=== PATIENT | female | born 1945 | race Caucasian/White ===

== ENCOUNTER 2021-01-06 16:11 | Outpatient (REF) | payer MEDICARE, SELFPAY ==
--- NOTE | ~2021-01-06 | XR_ITS ---
EXAMINATION: FACIAL AND NASAL BONE X-RAY CLINICAL INFORMATION: Fall. Contusion. COMPARISON: None TECHNIQUE: 2 views of the nasal bones and 4 views of the facial bones FINDINGS: Nasal bones: No nasal bone fracture or dislocation is seen. The nasal spine of maxilla is intact. Facial bones: Bone alignment is normal. No fracture or dislocation is seen. There is increased soft tissue seen in the right maxillary sinus. The paranasal sinuses are otherwise clear. Bony structures are unremarkable. XR/XR facial bones min 3V IMPRESSION: No fracture or dislocation seen. Increased soft tissue in the right maxillary sinus. Sinus disease and changes related to trauma should be considered.
--- NOTE | ~2021-01-06 | XR_ITS ---
EXAMINATION: FACIAL AND NASAL BONE X-RAY CLINICAL INFORMATION: Fall. Contusion. COMPARISON: None TECHNIQUE: 2 views of the nasal bones and 4 views of the facial bones FINDINGS: Nasal bones: No nasal bone fracture or dislocation is seen. The nasal spine of maxilla is intact. Facial bones: Bone alignment is normal. No fracture or dislocation is seen. There is increased soft tissue seen in the right maxillary sinus. The paranasal sinuses are otherwise clear. Bony structures are unremarkable. XR/XR nasal bones min 3V IMPRESSION: No fracture or dislocation seen. Increased soft tissue in the right maxillary sinus. Sinus disease and changes related to trauma should be considered.
[2021-01-06 17:22] LABS: MANUAL DIFF FLAG NO
[2021-01-06 17:25] LABS: Basophils Percent Auto 0.4 % (0-2); Eosinophils Absolute Auto 0.5 X10*3/uL (0.0-0.4); Eosinophils Percent Auto 9.1 % (0-4); Hematocrit 43.2 % (37-47); Hemoglobin 14.2 g/dl (12.0-16.0); Imm Gran Abs Auto 0.01 X10*3/uL (0.00-0.03); Imm Gran Pct Auto 0.2 % (0.0-0.4); Lymphocytes Absolute Auto 1.3 X10*3/uL (1.2-4.9); Lymphocytes Percent Auto 25.3 % (20-40); Mean Corpuscular HGB Conc 32.9 g/dl (31.0-35.0); Mean Corpuscular Hemoglobin 30.2 pg (27.0-33.0); Mean Corpuscular Volume 91.9 fL (80-98); Mean Platelet Volume 11.3 fL (9.4-12.3); Monocytes Absolute Auto 0.8 X10*3/uL (0.1-1.2); Monocytes Percent Auto 14.9 % (2-11); Neutrophils Absolute Auto 2.6 X10*3/uL (2.0-8.3); Neutrophils Percent Auto 50.1 % (45-73); Platelet Count 160 X10*3/uL (160-400); Red Cell Distribution Width 13.2 % (11.0-16.0); White Blood Count 5.2 X10*3/uL (4.8-10.8)
[2021-01-06 17:35] LABS: Prothrombin Time 11.6 SEC (10.8-13.0)
[2021-01-06 17:38] LABS: Partial Thromboplastin Time 26.9 SEC (24.1-38.0)
[2021-01-06 17:43] LABS: Alanine Aminotransferase 20 U/L (0-31); Albumin Level 4.3 g/dL (3.5-5.0); Alkaline Phosphatase 78 U/L (39-117); Anion Gap 15 (12-20); Aspartate Amino Transferase 25 U/L (5-31); Bilirubin Total 0.4 mg/dL (0.0-1.0); Blood Urea Nitrogen 26 mg/dL (9-16); C Reactive Protein 3.64 mg/dL (< or = 0.50); Calcium 9.5 mg/dL (8.4-10.2); Carbon Dioxide 26 mmol/L (22-29); Chloride 104 mmol/L (96-108); Estimated Glomerular Filt Rate > 60; Glucose Random 86 mg/dL (60-115); Sodium 141 mmol/L (135-145); Total Protein 7.1 g/dL (6.5-8.0)
[2021-01-06 18:05] LABS: Free T4 (Free Thyroxine) 0.88 ng/dL (0.71-1.85); Thyroid Stimulating Hormone 4.77 uIU/mL (0.32-4.0)
== END 2021-01-06 16:12 | disposition home or self-care (01) ==
LOC: HO.LAB 16:11
PROVIDERS: PCP Internal Medicine; Visit Provider Internal Medicine
DX: R63.5 Abnormal weight gain (principal); I10 Essential (primary) hypertension; S00.83XA Contusion of other part of head, initial encounter; W19.XXXA Unspecified fall, initial encounter; Y93.9 Activity, unspecified; Y92.9 Unspecified place or not applicable; Y99.9 Unspecified external cause status
CPT/HCPCS: 36415; 70150; 70160; 80053; 84439; 84443; 85025; 85610; 85730; 86140

== ENCOUNTER → 2021-09-22 13:53 | Outpatient (BNVA) | payer MEDICARE, SELFPAY | PROVIDERS: PCP Internal Medicine; Referring Provider Internal Medicine; Visit Provider Internal Medicine Cardiovascular Disease | DX: I10 Essential (primary) hypertension (principal) | CPT/HCPCS: 93005; 99202 ==

== ENCOUNTER → 2021-11-09 13:54 | Outpatient (REF) | payer MEDICARE, SELFPAY ==
--- NOTE | 2021-11-09 13:57 | CA_ITS ---
Transthoracic Echocardiogram Patient (Last, First, Middle): Mayda Cohen J Gender: Female Date of : 1945 Age: 76 Procedure Date: 11/09/2021 Procedure Type: Transthoracic Echocardiogram Location: OP Height: 162.56 cm Weight: 58.97 kg BSA: 1.63 m2 Heart Rate: bpm BP: 168 / 100 mmHg Increment Manager: STEVEN Referring MD: Abimael Bhakta MD Symptoms: I10 - Essential (primary) hypertension Study Quality: Fair Conclusions: - Normal left ventricular size and systolic function. There is moderately increased left ventricular wall thickness. The visually estimated ejection fraction is between 65-70%. - E/E prime ratio is between 8 and 15 consistent with indeterminate filling pressures. - Normal right ventricular cavity size and systolic function. - The left atrium is normal in size. The right atrium is mildly dilated. Findings Left Ventricle Normal left ventricular size and systolic function. There is moderately increased left ventricular wall thickness. The visually estimated ejection fraction is between 65-70%. There is no evidence of regional wall motion abnormalities. Abnormal diastolic function is noted. Spectral Doppler is indicative of an impaired relaxation filling pattern. E/E prime ratio is between 8 and 15 consistent with indeterminate filling pressures. Right Ventricle Normal right ventricular cavity size and systolic function. Atria The left atrium is normal in size. The right atrium is mildly dilated. Aortic Valve Normal aortic valve structure and function. There is no aortic valve stenosis. There is no aortic valve regurgitation. Mitral Valve There is mild mitral annular calcification. There is no mitral valve regurgitation. There is no mitral valve stenosis. Pulmonic Valve The pulmonic valve is likely normal. Tricuspid Valve Normal tricuspid valve structure and function. There is no tricuspid valve regurgitation. Normal right atrial pressure. There is no evidence of pulmonary hypertension. Great Vessels All visible segments of the aorta are normal in size. The visualized portions of the pulmonary artery and branches are normal. Venous The inferior vena cava is normal in size and collapses greater than 50% with inspiration. Pericardium/Pleural There is no evidence of pericardial effusion. Prior Study Comparison No prior study available for comparison. Measurements 2D Linear Measurements IVSd: 1.38 0.6-0.9/0.6-1.0 cm LVIDd: 3.35 3.9-5.3/4.2-5.9 cm LVIDd Index: 2.06 2.4-3.2/2.2-3.1 cm/m2 LVIDs: 1.95 2.0-3.6 cm LVPWd: 1.27 0.7-1.1 cm Ao Root: 3.00 2.1-3.5 cm LA Diam: 2.90 2.7-3.8/3.0-4.0 cm LAIDs Index: 1.78 1.5-2.3 cm/m2 LV Mass: 185.54 67-162/88-224 g LV Mass Index: 113.83 43-95/49-115 g/m2 LVOT Diam: 2.00 3.0+(-)1.3 cm 2D Systolic Function EF 4C: 72.60 >55% EF 2C: 63.70 >55% EF BiP: 69.80 >55% Mitral Valve MV Pk E: 0.78 MV PK A: 1.18 MV Decel Time: 298.00 E/A: 0.70 E'Lateral: 6.85 E'Medial: 4.79 E/E' Med: 16.30 E/E' Lat: 11.40 PHT: 87.00 MVA PHT: 2.53 Decel [place]: 2.63 Aortic Valve AoV Pk Toro: 1.47 AoV Mn Toro: 0.91 AoV VTI: 0.30 AoV Pk Grad: 9.00 Aov Mn Grad: 4.00 ANTONIO Cont.VTI: 2.63 LVOT LVOT Pk Toro: 1.10 LVOT Mn Toro: 0.77 LVOT VTI: 0.25 LVOT Pk Grad: 5.00 LVOT Mn Grad: 3.00 LVOT Diam: 2.00 LVOT Area: 3.14 Diastolic Function MV Pk E: 0.78 MV Pk A: 1.18 E/A: 0.70 E'Medial: 4.79 E/E' Med: 16.30 E' Laterial: 6.85 E/E' Lat: 11.40 Right Ventricle TAPSE (mm): 26.50 TVS' Toro: 12.80 Tricuspid Valve TR Pk Toro: 2.55 TR Pk Grad: 26.00 RA Press: 3.00 RVSP: 29.00 Great Vessels Aorta Ao Root-2D: 3.00 2.0-3.7 cm Ao Asc: 3.00 2.1-3.4 cm Ao Arch: 2.60 Updated in Other Vendor System with Status of Final Abimael Bhakta MD electronically signed on 11/10/2021 12:41:57 PM with status of Final
== END ==
LOC: HO.CARD 13:54
PROVIDERS: PCP Internal Medicine; Visit Provider Internal Medicine Cardiovascular Disease
DX: I10 Essential (primary) hypertension (principal)
CPT/HCPCS: 93306

== ENCOUNTER → 2021-12-21 13:13 | Outpatient (BNVA) | payer MEDICARE, SELFPAY | PROVIDERS: PCP Internal Medicine; Referring Provider Internal Medicine; Visit Provider Internal Medicine Cardiovascular Disease | DX: I10 Essential (primary) hypertension (principal) | CPT/HCPCS: 99212 ==

== ENCOUNTER → 2022-06-26 13:10 | Outpatient (BNVA) | payer MEDICARE, SELFPAY | PROVIDERS: PCP Internal Medicine; Referring Provider Internal Medicine; Visit Provider Internal Medicine Cardiovascular Disease | DX: I10 Essential (primary) hypertension (principal); R06.09 Other forms of dyspnea | CPT/HCPCS: 93005; 99212 ==

== ENCOUNTER → 2022-08-01 08:58 | Outpatient (REF) | payer MEDICARE, SELFPAY ==
--- NOTE | ~2022-08-01 | NM_ITS ---
Myocardial perfusion study Indication: Exercise Myocardial perfusion study Indication: Shortness of breath evaluate for myocardial ischemia Technique: The patient was brought in for an exercise perfusion study on 08/01/2022. Patient performed exercise as per Sky protocol and was injected 24 mCi of sestamibi was given intravenously one target HR was achieved. Images were obtained using the SPECT gamma camera interlaced with the gating device. Images were obtained in supine position. Resting perfusion study was performed on 08/01/2022. Patient was administered 8 mCi of sestamibi intravenously at rest. Images were then obtained in supine position. Images obtained with and without CT attenuation. Total DLP 72 mGy-cm. Images were processed with the software and compared side to side in short axis, horizontal long axis and vertical long axis views. Findings: The stress perfusion study showed non attenuated images show mildly reduced uptake in the basal and mid lateral wall of the LV myocardium. Remainder of the LV myocardium is normally perfused. Attenuation corrected images show normalized uptake in the lateral wall of the LV myocardium.. The gated study shows normal LV systolic function with calculated LVEF of 66%. LV cavity is normal in in size. The gated study shows normal systolic wall thickening and contraction of all segments. There is no transient ischemic dilation. Resting study shows non attenuated images show normal uptake of radiotracer in all segments of LV myocardium. Attenuation corrected images show no change in perfusion pattern. Gating at rest reveals normal systolic wall motion with ejection fraction at greater than 60%. The findings are consistent with non attenuated images show moderate intensity reversible defect of the mid and basal lateral wall suggestive of ischemia.. NM/NM komal perf SPECT rest & str Impression: 1. Possible ischemia of the mid and basal lateral wall of mild intensity 2. Gated LVEF is 66% 3. Transient ischemic dilatation not present Stress EKG is suggestive of ischemia
--- NOTE | 2022-08-01 09:04 | CA_ITS ---
Acquisition Time: 2022-08-01 11:13:14 Total Exercise Time: 00:05:45 Test Indications: SOB Medications: SEE CHART Protocol: MARTHA Max HR: 123 BPM 86% of Pred: 143 BPM Max BP: 178/084 mmHG Max Work Load: 7.0 METS Exercise stress test with exercise 5 min 45 sec of Martha protocol, achieving 86% MPHR, with fatigue, without anginal symptoms, with isolated PACs, with normotensive response to exercise, with EKG changes meeting criteria for ischemia: upsloping ST depression inferiorly, V3-V6 which then becomes horizontal then downsloping ST/T wave inversions in those leads with slow gradual improvement in recovery. Nuclear images pending. Test reviewed with Dr Bhakta. Referred By: Abimael Bhakta Overread By: KIEL FRIED
== END ==
LOC: HO.CARD 08:58
PROVIDERS: PCP Internal Medicine; Visit Provider Internal Medicine Cardiovascular Disease
DX: R06.09 Other forms of dyspnea (principal)
CPT/HCPCS: 78452; 93017; A9500

== ENCOUNTER 2022-10-07 09:08 | Outpatient (REF) | payer MEDICARE, SELFPAY ==
[2022-10-07 09:56] LABS: Hematocrit 40.7 % (37.0-47.0); Hemoglobin 13.6 g/dl (12.0-16.0); Mean Corpuscular HGB Conc 33.4 g/dl (31.0-35.0); Mean Corpuscular Hemoglobin 31.3 pg (27.0-33.0); Mean Corpuscular Volume 93.8 fL (80.0-98.0); Mean Platelet Volume 11.5 fL (9.4-12.3); Platelet Count 200 X10*3/uL (160-400); Red Blood Count 4.34 X10*6/uL (4.20-5.50); Red Cell Distribution Width 13.2 % (11.0-16.0)
[2022-10-07 10:03] LABS: INTERNATIONAL NORM RATIO 0.9 (0.9-1.1); Prothrombin Time 10.4 SEC (10.0-13.1)
[2022-10-07 10:17] LABS: Anion Gap 7 (12-20); Blood Urea Nitrogen 24 mg/dL (9-16); Calcium 9.4 mg/dL (8.4-10.2); Carbon Dioxide 30 mmol/L (22-29); Chloride 107 mmol/L (96-108); Estimated Glomerular Filt Rate > 60; Glucose Random 99 mg/dL (60-115); Potassium 4.2 mmol/L (3.3-5.1); Sodium 140 mmol/L (135-145)
== END 2022-10-07 09:09 | disposition home or self-care (01) ==
LOC: HO.LAB 09:08
PROVIDERS: PCP Internal Medicine; Visit Provider Internal Medicine Cardiovascular Disease
DX: R06.09 Other forms of dyspnea (principal)
CPT/HCPCS: 36415; 80048; 85027; 85610

== ENCOUNTER 2023-03-16 11:25 | Outpatient (REF) | payer MEDICARE, SELFPAY ==
--- NOTE | ~2023-03-16 | XR_ITS ---
EXAMINATION: XR HIP, RIGHT CLINICAL INFORMATION: Pain in unspecified hip COMPARISON: CT scan abdomen and pelvis 12/04/2019 TECHNIQUE: Two views of the right hip. FINDINGS: The bones are diffusely demineralized. No fracture. Alignment is anatomic. There is minimal narrowing of the cartilage space of the right hip with marginal osteophyte formation along the superior dorsolateral aspect of the acetabulum. Small osteophyte along the inferior aspect of the femoral head. Small sclerotic density seen in the intertrochanteric region of the femoral shaft. Soft tissues are unremarkable. There is mild degenerative change of the pubic symphysis. Degenerative disc disease is seen in the lower lumbar spine. XR/XR hip RT min 2V IMPRESSION: Mild osteoarthritis of the right hip.
--- NOTE | ~2023-03-16 | XR_ITS ---
EXAMINATION: XR HIP, LEFT CLINICAL INFORMATION: Pain in unspecified hip COMPARISON: None available. TECHNIQUE: Two views of the left hip. FINDINGS: The bones are diffusely demineralized. No fracture. Alignment is anatomic. There is minimal narrowing of the cartilage space of the left hip. There is mild degenerative change of the pubic symphysis. Degenerative disc disease is seen in the lower lumbar spine. XR/XR hip LT w PEL1V IMPRESSION: 1. Minimal osteoarthritis of the left hip. 2. Degenerative disc disease in the lower lumbar spine.
--- NOTE | ~2023-03-16 | XR_ITS ---
EXAMINATION: XR STANDING KNEES, BILATERAL KNEES XR KNEE, RIGHT CLINICAL INFORMATION: Pain. COMPARISON: None available. TECHNIQUE: AP standing view of bilateral knees. Lateral and sunrise views right knee. FINDINGS: Left Knee: Mild medial joint space narrowing with tiny medial marginal osteophytes. Dense linear soft tissue calcification medial to the proximal shaft of the fibula. Right Knee: Mild medial joint space narrowing. Tiny tricompartmental osteophytes. Trace joint effusion. XR/XR knee standing BI IMPRESSION: Mild degenerative changes.
--- NOTE | ~2023-03-16 | XR_ITS ---
EXAMINATION: XR STANDING KNEES, BILATERAL KNEES XR KNEE, RIGHT CLINICAL INFORMATION: Pain. COMPARISON: None available. TECHNIQUE: AP standing view of bilateral knees. Lateral and sunrise views right knee. FINDINGS: Left Knee: Mild medial joint space narrowing with tiny medial marginal osteophytes. Dense linear soft tissue calcification medial to the proximal shaft of the fibula. Right Knee: Mild medial joint space narrowing. Tiny tricompartmental osteophytes. Trace joint effusion. XR/XR knee RT 2V IMPRESSION: Mild degenerative changes.
== END 2023-03-16 11:26 | disposition home or self-care (01) ==
LOC: HO.HOSX 11:25
PROVIDERS: Visit Provider Physician Assistant
DX: M17.11 Unilateral primary osteoarthritis, right knee (principal); S80.01XA Contusion of right knee, initial encounter; M25.551 Pain in right hip; M25.552 Pain in left hip; M54.50 Low back pain, unspecified
CPT/HCPCS: 20610; 73502; 73560; 73565; 99202; J1040

== ENCOUNTER 2023-06-19 11:26 | Outpatient (AMB) | payer MEDICARE, SELFPAY ==
--- NOTE | 2023-06-19 11:32 | A.OFFVIS_ITS ---
Intake Intake Visit Reasons: ov- Right knee pain Intake Note: Mayda is a 77 year old female who presents today for a evaluation for her right knee pain, last injection 03/16/23. Patient reports her last injection didn't help. She states that when she icing her knee and elevating only gives her temporary relief. Patient would like to know what can she do to relief her pain. Allergies No Known Allergies [No Known Allergies*] Allergy (Verified 06/19/23 11:36) HPI ov- Right knee pain HPI Details 77-year-old female who presents in the o [facility] today for a follow up of right knee pain. The patient has her last cortisone injection on 03/16/2023, which did not give her relief. She confirms icing and elevating the right knee, which has given some relief. [facility] Surgical History Hx of tonsillectomy Family History Mother S/P triple vessel bypass Father Myocardial infarction Sister Heart disease Son HTN (hypertension) Social History Alcohol intake: current Alcohol intake frequency: a few times a week Patient Tobacco Use Status: Former Tobacco user Quit Date: 1979 Smoked: 10 +/- Substance Use Type: Marijuana Review of Systems Const All systems reviewed & are unremarkable except as noted in HPI and below Physical Exam Const General: cooperative, healthy appearing and no acute distress Resp Effort & Inspection: normal respiratory effort and able to speak in complete sentences Cardio Rate: regular rate Peripheral pulses: Peripheral pulses 2+ throughout GI Palpation (GI): Soft to palpation Skin Lesions: no lesions Rashes: no rashes Extrem Other: Right knee: Normal to inspection. No ecchymosis, erythema, or joint effusion. No tenderness to palpation to the lateral joint line. Tenderness to palpation to the medial joint line. Full knee extension and flexion. Negative Car's. Negative anterior draw. NVI. Office Procedures Joint Injection/Drain Joint Injection/Drain Primary Site: right knee Prep: site was prepped using aseptic technique, ethochloride spray was applied and injection warnings given Injected: 80 mg of, DepoMedrol, with 8 mL of (2% plain lido) and in the joint Approach Used: anterolateral Procedure: The patient tolerated the procedure well, but had some pain with the injection and there was some relief with the local anesthesia Coding 52768 - Large joint Procedure code (CPT) selection complete Results Reviewed Results Reviewed: 06/19/23 11:43 Lidocaine HCl 2 % MPF [Xylocaine 2 % MPF] 5 ml .ROUTE .STK-MED ONE methylPREDNISolone acetate [DEPO-MedroL] 80 mg .ROUTE .STK-MED ONE Assessment & Plan Assessment & Plan (1) Osteoarthritis of right knee: Code(s): M17.11 - Unilateral primary osteoarthritis, right knee Qualifiers: Osteoarthritis type: unspecified Qualified Code(s): M17.11 - Unilateral primary osteoarthritis, right knee (2) Contusion of right knee: Code(s): S80.01XA - Contusion of right knee, initial encounter Qualifiers: Encounter type: subsequent encounter Qualified Code(s): S80.01XD - Contusion of right knee, subsequent encounter Plan Ms. Cohen is a 77-year-old female who presents in the office today for a follow up of right knee pain. The patient has her last cortisone injection on 03/16/2023, which did not give her relief. She confirms icing and elevating the right knee, which has given some relief. The patient was offered a cortisone injection in the right knee with 80 mg of DepoMedrol. The patient was explained the risk, benefits, and alternatives to receiving this injection. After receiving consent for the injection, the patient had the procedure done while in office today. The patient tolerated the procedure well with no complications. I discussed the role of cortisone injections and gel injection with the patient while in the office today. She would like to move forward with the cortisone injection and in the event this does not help her she would like to move forward with Gel injections. She in currently not interesting in right knee arthroplasty. Follow up will be PRN, or sooner if needed. Patient Instructions: Scribed for Renetta Plummer PA-C by Heather Longoria medical physics teacher, on 06/19/2023 at 11:32 am, EST. Coding Level of Care Code Est Pt Level 3 (51660) Diagnoses Osteoarthritis of right knee, unspecified osteoarthritis type M17.11 Osteoarthritis type: unspecified Contusion of right knee, subsequent encounter S80.01XD Encounter type: subsequent encounter CPT Codes Coding - 18426 Large joint: 06105 - Large joint ([id number])
== END 2023-06-19 11:55 | disposition home or self-care (01) ==
PROVIDERS: PCP Internal Medicine; Visit Provider Physician Assistant
DX: M17.11 Unilateral primary osteoarthritis, right knee (principal); S80.01XD Contusion of right knee, subsequent encounter
CPT/HCPCS: 20610; 99213

== ENCOUNTER → 2023-06-19 11:26 | Outpatient (BNVA) | payer MEDICARE, SELFPAY | PROVIDERS: PCP Internal Medicine; Visit Provider Physician Assistant | DX: M17.11 Unilateral primary osteoarthritis, right knee (principal); S80.01XD Contusion of right knee, subsequent encounter | CPT/HCPCS: 20610; 99212; J1040 ==

== ENCOUNTER 2023-10-11 14:34 | Outpatient (REF) | payer MEDICARE, SELFPAY ==
--- NOTE | ~2023-10-11 | CT_ITS ---
EXAMINATION: CT MAXILLOFACIAL WITHOUT CONTRAST CLINICAL INFORMATION: Seasonal polyps. Deviated nasal septum. COMPARISON: None available. TECHNIQUE: Multidetector helical imaging was performed in the axial plane with generation of coronal and sagittal reformatted images. This CT examination was performed using dose optimization techniques as appropriate, variously including the following: *Automated exposure control. *Adjustment of mA and/or kV according to patient size (this includes techniques or standardized protocols for targeted exams where dose is matched to indication/reason for exam; i.e. extremities or head). *Use of iterative reconstruction technique. DLP: 99 mGy-cm FINDINGS: FRONTAL SINUSES AND DRAINAGE PATHWAYS: Mild mucosal thickening of the frontal sinuses. The frontoethmoidal recesses are partially opacified. MAXILLARY SINUSES AND DRAINAGE PATHWAYS: Mild atelectasis of the right maxillary sinus. Moderate mucosal thickening of the maxillary sinuses. The maxillary ostia and infundibula are opacified. ETHMOID SINUSES: Moderate mucosal thickening of the ethmoid air cells. The ethmoid roofs appear symmetric and intact. SPHENOID SINUS AND DRAINAGE PATHWAYS: Mild mucosal thickening of the sphenoid sinus. The sphenoethmoidal recesses are partially opacified. NASAL PASSAGE: Mild mucosal thickening of the nasal passages. Mild leftward nasal septal deviation with slight rightward spurring. ADDITIONAL RELEVANT FINDINGS: The lamina papyracea are intact. No demonstrated abnormalities of the orbits. The carotid canals are normally covered by bone. No significant maxillary periapical disease. Moderate degenerative arthropathy of the temporomandibular joints. The mastoid air cells and middle ear cavities remain well aerated. Calcific atherosclerotic disease of the intracranial internal carotid arteries. Otherwise, limited evaluation of the intracranial structures without significant abnormalities. CT/CT sinus wo IV con IMPRESSION: 1. Moderate pansinonasal mucosal disease. 2. Mild leftward nasal septal deviation with slight rightward spurring.
== END 2023-10-11 14:35 | disposition home or self-care (01) ==
LOC: HO.CT 14:34
PROVIDERS: PCP Internal Medicine; Visit Provider Otolaryngology
DX: I33.0 Acute and subacute infective endocarditis (principal); J34.2 Deviated nasal septum
CPT/HCPCS: 70486

== ENCOUNTER 2024-06-15 09:14 | Emergency (ER) | payer MEDICARE, SELFPAY ==
--- NOTE | ~2024-06-15 | XR_ITS ---
EXAMINATION: XR CHEST 1 VIEW CLINICAL INFORMATION: cough COMPARISON: None TECHNIQUE: Single portable frontal view. Tubes and lines: None Lungs and pleura: Mild infiltrates/linear atelectasis at left lung base. Lungs hyperinflated suggesting air trapping disease possibly COPD. Heart and mediastinum: The mediastinum is within normal limits.. Bones/soft tissue: There is reverse S-shaped scoliosis of dorsal spine. XR/XR chest 1V IMPRESSION: 1. Mild infiltrates/linear atelectasis at left lung base. 2. Hyperinflated lungs suggesting air trapping disease COPD. 3. Reverse S-shaped scoliosis of dorsal spine. Electronically signed by: Coreen Handley MD 06/15/2024 10:49 AM EDT
[2024-06-15 09:34] VITALS: BP 158/80; PULSE 86; RESP 16; TEMP 36.5; O2SAT 98; BMI 23.0
[2024-06-15 09:52] LABS: MANUAL DIFF FLAG NO
[2024-06-15 09:56] LABS: Basophils Percent Auto 0.2 % (0-2); Eosinophils Absolute Auto 0.2 X10*3/uL (0.0-0.4); Eosinophils Percent Auto 1.9 % (0-4); Hematocrit 44.2 % (37.0-47.0); Hemoglobin 15.2 g/dl (12.0-16.0); Imm Gran Abs Auto 0.04 X10*3/uL (0.00-0.03); Imm Gran Pct Auto 0.4 % (0.0-0.4); Lymphocytes Absolute Auto 1.5 X10*3/uL (1.2-4.9); Lymphocytes Percent Auto 12.9 % (20-40); Mean Corpuscular HGB Conc 34.4 g/dl (31.0-35.0); Mean Corpuscular Volume 90.2 fL (80.0-98.0); Mean Platelet Volume 11.2 fL (9.4-12.3); Monocytes Absolute Auto 0.7 X10*3/uL (0.1-1.2); Monocytes Percent Auto 6.4 % (2-11); Neutrophils Absolute Auto 8.9 x10*3/uL (2.0-8.3); Neutrophils Percent Auto 78.2 % (45-73); Platelet Count 165 X10*3/uL (160-400); Red Cell Distribution Width 13.3 % (11.0-16.0); White Blood Count 11.3 X10*3/uL (4.8-10.8)
[2024-06-15 10:04] LABS: COVID-19 Test Positive (Negative); IDNOW Serial# 08D9AD1C
[2024-06-15 10:09] LABS: Anion Gap 14 (12-20); Blood Urea Nitrogen 18 mg/dL (9-16); Calcium 9.7 mg/dL (8.4-10.2); Carbon Dioxide 26 mmol/L (22-29); Chloride 105 mmol/L (96-108); Creatinine Clr Calc Pharmacy 42.3; Estimated Glomerular Filt Rate > 60; Glucose Random 123 mg/dL (60-115); Potassium 3.5 mmol/L (3.3-5.1); Sodium 141 mmol/L (135-145)
[2024-06-15 10:11] LABS: IDNOW Serial# 152EDE1D; Influenza A Negative (Negative); Influenza B2 Negative (Negative)
--- NOTE | 2024-06-15 10:24 | ED_ITS ---
HPI - Nausea/Vomiting/Diarrhea General Chief complaint: Nausea/Vomiting/Diarrhea Stated complaint: Diarrhea/very weak Time Seen by Provider: 06/15/24 10:14 Source: patient and family () Mode of arrival: ambulatory Limitations: no limitations History of Present Illness ED Provider: DR. Denise HPI Narrative: 78-year-old female came in for evaluation of generalized body ache, congestion, coughing, and constant nonbloody watery diarrhea for the past 3 days, labs were her at home who was recently diagnosed with COVID infection. no fever, no chills. Related Data Home Medications ?Medication ?Instructions ?Recorded ?Confirmed amlodipine 5 mg tablet 10 mg PO DAILY 09/22/21 06/26/22 aspirin 81 mg tablet,delayed 81 mg PO DAILY 09/22/21 06/26/22 release (Adult Low Dose Aspirin) clonazepam 1 mg tablet 1 mg PO BEDTIME PRN 09/22/21 06/26/22 escitalopram oxalate 10 mg tablet 10 mg PO DAILY 09/22/21 06/26/22 multivitamin 1 tab PO DAILY 09/22/21 06/26/22 omega-3 fatty acids 1,000 mg 1,000 mg PO DAILY 09/22/21 06/26/22 capsule (Fish Oil Concentrate) alendronate 70 mg tablet 70 mg PO QWEEK 12/21/21 06/26/22 lisinopril 30 mg tablet 60 mg PO DAILY 06/26/22 06/26/22 Previous Rx's ?Medication ?Instructions ?Recorded azithromycin 250 mg tablet See Rx Instructions PO .COMPLEX #6 06/15/24 (Zithromax Z-Pineda) tabs Allergies Allergy/AdvReac Type Severity Reaction Status Date / Time No Known Allergies Allergy Verified 06/15/24 09:38 [No Known Allergies*] Review of Systems 2 Review of Systems: All other systems are reviewed and are negative Constitutional: Reports as per HPI and Reports no additional constitutional complaints Eyes: Reports as per HPI and Reports no additional eye complaints Reports system reviewed and no additional complaints, except as documented Cardiovascular: Reports as per HPI and Reports no additional cardiovascular complaints Respiratory: Reports as per HPI and Reports no additional respiratory complaints Gastrointestinal: Reports as per HPI and Reports no additional gastrointestinal complaints Genitourinary: Reports no additional female genitourinary complaints Musculoskeletal: Reports no additional musculoskeletal complaints Skin/Breast: Reports system reviewed and no additional complaints, except as docu Psychiatric: Reports no additional psychiatric complaints Endocrine: Reports no additional endocrine complaints Hematologic/Lymphatic: Reports no additional hematologic/lymphatic complaints Allergic/Immunologic: Reports no additional allergic/immunologic complaints Reports system reviewed and no additional complaints, except as documented and Reports Abnormal speech present [facility] Past Medical History Surgical History Hx of tonsillectomy Family History Family History Mother S/P triple vessel bypass Father Myocardial infarction Sister Heart disease Son HTN (hypertension) Social History Social History Alcohol intake: current Alcohol intake frequency: a few times a week Alcohol type: hard liquor Patient Tobacco Use Status: Former Tobacco user Years Smoked: 10 +/- Smoked in Last 30 Days: No Use of substances other than those prescribed or required for medical reasons: Yes Substance Use Type: Marijuana Advance Directives: No Advance Directives Information Provided: No Physical Exam 2 Vital Signs: Vital Signs: Last Vital Signs Temp 97.7 F 06/15/24 09:34 Pulse 82 06/15/24 10:46 Resp 16 06/15/24 09:34 BP 136/70 06/15/24 10:46 Pulse Ox 98 06/15/24 09:34 O2 Del Method Room Air 06/15/24 09:34 BMI result Body Mass Index 23.0 Vital signs have been reviewed and appear to be correct. Blood pressure elevated. Heart rate normal. Respiratory rate normal. Temperature normal. Oxygen saturation normal. Appearance: Alert. Oriented X3. No acute distress. Head: Normal external exam. Normocephalic. Atraumatic. No Miles signs noted. No raccoon eyes noted Eyes: PERRLA. EOMI. Conjunctiva and sclera normal. Eyelids normal. ENT: TM's Normal. Pharynx normal. Uvula midline. Moist mucous membranes. No trismus noted. No drooling noted. No muffled voice noted. Neck: Normal inspection. Neck supple. FROM. No adenopathy. Thyroid Normal. No meningeal signs. No neck mass noted. CVS: Normal heart rate and rhythm. Heart sound normal. No murmurs noted. Pulses normal throughout. Respiratory: No respiratory distress. Painless inspiration. Breath sounds normal. No wheezes/rales/rhonchi noted. Chest nontender. No accessory muscle usage noted or decreased air movement noted. Abdomen: Soft and nontender. Bowel sounds normal in all 4 quadrants. No distention noted. No organomegaly noted. No visible injury noted. Back: No CVA tenderness. Full range of motion noted. Skin: Skin warm and dry. Normal skin color. Normal skin turgor. No rashes/lesions/lacerations noted. Extremities: No lower extremity edema. Extremities exhibit normal range of motion. Extremities nontender. Neuro: Oriented X 3. Cranial nerve exam: II-XII are grossly intact No motor deficit. No sensory deficit. Reflexes normal. Course Reevaluation(s) Reevaluation #1: 78-year-old female presented with generalized weakness and constant diarrhea, patient tested positive for COVID patient's symptoms started 3 days before her presentation today secondary to exposure to her who also was diagnosed with COVID last week, patient feels better after IV hydration, chest x-rays questioning infiltrate and the left lung versus atelectasis, vital signs remained stable in the emergency department, no orthostatic change. Patient feels better after received NSAIDs. will discharge instructed to use face mask, frequent hand wash, self quarantine and keep social distancing. prophylactic Z- Pineda for possible pneumonia and x-ray. Patient also instructed to return if symptoms is not improving. Time: 13:00 Medications Administered Discontinued Medications Generic Name Dose Route Start Last Admin Trade Name Freq PRN Reason Stop Dose Admin Sodium Chloride 1,000 mls @ 999 mls/hr 06/15/24 10:23 06/15/24 10:47 Ns IV 06/15/24 11:23 999 mls/hr .Q1H1M ONE Administration Ketorolac Tromethamine 15 mg 06/15/24 10:23 06/15/24 10:48 Ketorolac Tromethamine 15 Mg/Ml Vial IVPUSH 06/15/24 10:24 15 mg ONCE ONE Administration Medical Decision Making Differential Diagnosis Differential Diagnoses: The differential diagnosis associated with the presentation includes ( COVID infection, flu, dehydration, electrolyte derangement, severe anemia, pneumonia, pneumothorax, pleural effusion.) Admission/Observation Consideration of admission/observation: Escalation of care including admission/observation considered Lab Data MDM Lab Attestation statement: I reviewed the patient's lab results. 06/15/24 09:48 06/15/24 09:48 Labs: Lab Results 06/15/24 Range/Units 09:48 WBC 11.3 H (4.8-10.8) X10*3/uL RBC 4.90 (4.20-5.50) X10*6/uL Hgb 15.2 (12.0-16.0) g/dl Hct 44.2 (37.0-47.0) % MCV 90.2 (80.0-98.0) fL MCH 31.0 (27.0-33.0) pg MCHC 34.4 (31.0-35.0) g/dl RDW 13.3 (11.0-16.0) % Plt Count 165 (160-400) X10*3/uL MPV 11.2 (9.4-12.3) fL Immature Gran % (Auto) 0.4 (0.0-0.4) % Neut % (Auto) 78.2 H (45-73) % Lymph % (Auto) 12.9 L (20-40) % Frontier % (Auto) 6.4 (2-11) % Eos % (Auto) 1.9 (0-4) % Baso % (Auto) 0.2 (0-2) % Lymph # (Auto) 1.5 (1.2-4.9) X10*3/uL Frontier # (Auto) 0.7 (0.1-1.2) X10*3/uL Eos # (Auto) 0.2 (0.0-0.4) X10*3/uL Baso # (Auto) 0.0 (0.0-0.2) X10*3/uL Abs Immat Gran (auto) 0.04 H (0.00-0.03) X10*3/uL Absolute Neuts (auto) 8.9 H (2.0-8.3) x10*3/uL Absolute Nucleated RBC 0.000 (0.0-0.012) X10*3/uL Nucleated RBC % (auto) 0.0 (0.0-0.2) /100WBC Sodium 141 (135-145) mmol/L Potassium 3.5 (3.3-5.1) mmol/L Chloride 105 (96-108) mmol/L Carbon Dioxide 26 (22-29) mmol/L Anion Gap 14 (12-20) BUN 18 H (9-16) mg/dL Creatinine 0.89 (0.5-1.4) mg/dL Estim Creat Clear Calc 42.3 Estimated GFR > 60 Random Glucose 123 H (60-115) mg/dL Calcium 9.7 (8.4-10.2) mg/dL COVID-19 (WENDI) Positive A (Negative) COVID-19 Clin Com See Note Influenza Type A ([facility]) Negative (Negative) Influenza Type B ([facility]) Negative (Negative) Influenza A & B Note See Note Independent Interpretation I performed an independent interpretation of an: Plain X-Ray ( Chest: 1. Mild infiltrates/linear atelectasis at left lung base. 2. Hyperinflated lungs suggesting air trapping disease COPD. 3. Reverse S-shaped scoliosis of dorsal spine. ) Radiology Impression Discussion of test interpretation with radiology: I have reviewed the radiologist's reading. Discharge Plan Discharge Clinical Impression: COVID-19 virus infection, Diarrhea, Pneumonia Patient Disposition: Home, Self-Care Instructions: Acute Diarrhea (ED), Pneumonia (ED), COVID-19 (Coronavirus Disease 2019) (ED) Additional Instructions: drink plenty of fluids, self quarantine for 5 days, use face mask, frequent hand washing, keep social distancing seek immediate medical attention if not improving or worsening of your symptoms. Prescriptions: New azithromycin [Zithromax Z-Pineda] 250 mg tablet See Rx Instructions .ROUTE .COMPLEX Qty: 6 0RF Rx Instructions: For 250 mg dose pack: take 500 mg today (day 1), then 250 mg for 4 days (days 2-5) No Action escitalopram oxalate 10 mg tablet 10 mg PO DAILY clonazepam 1 mg tablet 1 mg PO BEDTIME PRN amlodipine 5 mg tablet 10 mg PO DAILY aspirin [Adult Low Dose Aspirin] 81 mg tablet,delayed release (DR/EC) 81 mg PO DAILY omega-3 fatty acids [Fish Oil Concentrate] 1,000 mg capsule 1,000 mg PO DAILY multivitamin Tablet 1 tab PO DAILY alendronate 70 mg tablet 70 mg PO QWEEK lisinopril 30 mg tablet 60 mg PO DAILY Referrals: Rubio Stauffer MD [Primary Care Provider] - Print Language: Slovak
[2024-06-15 10:45] VITALS: BP 154/72; PULSE 73
[2024-06-15 10:46] VITALS: BP 136/70; BP 155/71; PULSE 79; PULSE 82
[2024-06-15] MEDS: 0.9 % Sodium Chloride 1,000 ML 999 ML IV (10:47)
[2024-06-15] MEDS: Ketorolac Tromethamine 15 MG/ML VIAL IVPUSH (10:48)
[2024-06-15 13:56] VITALS: BP 152/87; PULSE 75; RESP 18; TEMP -17.7; TEMP 0; O2SAT 98
== END 2024-06-15 13:57 | disposition home or self-care (01) ==
PROVIDERS: Emergency Provider Emergency Medicine; PCP Internal Medicine
DX: J18.9 Pneumonia, unspecified organism (principal); U07.1 COVID-19; R11.2 Nausea with vomiting, unspecified; R53.1 Weakness; M79.10 Myalgia, unspecified site; R05.9 Cough, unspecified; Z79.899 Other long term (current) drug therapy
CPT/HCPCS: 71045; 80048; 85025; 87502; 87635; 99284; J1885

== ENCOUNTER 2025-06-02 12:46 | Outpatient (AMB) | payer MEDICARE, SELFPAY ==
[2025-06-02 12:57] VITALS: BP 148/82; PULSE 66; BMI 22.6
--- NOTE | 2025-06-02 12:57 | A.OFFVIS_ITS ---
Vital Signs 06/02/25 12:57 Height 5 ft 3 in Weight 127 lb 6.835 oz BMI 22.6 BP 148/82 H Blood Pressure Location Lt brachial Position Sitting Pulse 66 Pulse Source Monitor Intake Visit Reasons: Follow up -Palpitations (KM) Allergies No Known Allergies (No Known Allergies*) Allergy (Verified 06/02/25 12:59) Medication List - Last Reconciled 06/02/25 by Maria C Zapata NP-C albuterol sulfate 90 mcg/actuation 2 puffs inhalation QID amlodipine 5 mg PO DAILY aspirin (Adult Low Dose Aspirin) 81 mg PO DAILY clonazepam 1 mg PO BEDTIME PRN diazepam 2.5 mg PO BID PRN escitalopram oxalate 10 mg PO DAILY lisinopril 30 mg PO DAILY lisinopril 5 mg PO DAILY multivitamin 1 tab PO DAILY HPI HPI Follow up -Palpitations (KM): Details: Mayda is an 79-year-old female with past medical history of prior smoking, GERD, hypertension, mild nonobstructive coronary artery disease who presents for evaluation of heart palpitations. Last prior office visit was 06/26/22. Today she reports that when she is very angry which is frequently she will notice that her heart pounds strongly. This pounding can go on for for several hours. She does check her blood pressure periodically and finds that it is high. She has no chest discomfort at rest or with activity. She has no shortness of breath, PND, orthopnea or edema. She has no irregular or skipped heartbeats noted. No dizziness, presyncope, syncope, falls. Taking meds as directed. She has been taking the lisinopril 30 and a lisinopril 5 for years. She add salt to her diet frequently. is present. [facility] Surgical History Hx of tonsillectomy Family History Mother S/P triple vessel bypass Father Myocardial infarction Sister Heart disease Son HTN (hypertension) Social History Alcohol intake: current Alcohol intake frequency: a few times a week Alcohol type: hard liquor Patient Tobacco Use Status: Former Tobacco user Years Smoked: 10 +/- Substance Use Type: Marijuana Review of Systems Const All systems reviewed & are unremarkable except as noted in HPI and below ENT Denies dizziness Card Details: Pounding heart when angry Denies chest pain, Denies chest pain at rest, Denies chest pain with activity, Denies rapid heart rate, Denies pedal edema, Denies edema, Denies leg edema, Denies lightheadedness, Denies dyspnea, Denies dyspnea on exertion and Denies orthopnea Resp Denies cough, Denies dyspnea and Denies dyspnea on exertion GI Denies hematochezia and Denies change in stool character Musc Denies abnormal gait, Denies limited range of motion, Denies muscle cramps, Denies muscle weakness, Denies numbness, Denies radiating pain into limb, Denies stiffness and Denies tingling Neuro Denies abnormal gait, Denies dizziness, Denies numbness and Denies tingling Physical Exam Vital Signs: BMI result Body Mass Index 22.6 Const General: cooperative, healthy appearing, comfortable and no acute distress Orientation/consciousness: patient oriented x3 Neck Neck: Yes normal visual inspection and Yes no JVD Resp Effort & Inspection: normal respiratory effort Auscultation: clear to auscultation bilaterally, no crackles, no rales, no rhonchi and no wheezes Cardio Rate: regular rate Rhythm: regular rhythm Heart sounds: S1 normal heart sound present, S2 normal heart sound present, no gallops, no murmurs and no rubs Neuro General: patient oriented x3 Extrem General: Yes normal to inspection, No no pedal edema and No calf tenderness Psych Appearance: grossly normal Mental Status: mental status grossly normal Speech and movement: Normal speech and movement present Office Procedures EKG Details: Today, read by me, normal sinus rhythm, septal Q-wave, not new, rate 66, QTC 438 milliseconds [id number], Complete Assessment & Plan Assessment & Plan (1) Palpitations: Code(s): R00.2 - Palpitations Category: Medical Plan: Report of heart pounding when she is angry. This likely coincides with elevated blood pressure readings. EKG done today showing normal sinus rhythm with septal Q-wave, unchanged from prior EKG, rate 66. She is not reporting irregular or skipped heartbeats. Will hold off and Holter monitor at present. Will work on better blood pressure control. Will check echocardiogram. (2) Essential hypertension: Code(s): I10 - Essential (primary) hypertension Category: Medical Plan: Blood pressure goal less than 130/80. Blood pressure today initially 148/82, recheck done by me 172/82. She is on amlodipine 5 mg daily and lisinopril 35 mg daily. Will change this to lisinopril 40 mg daily for ease of use. Will have her check BMP and home blood pressures randomly over the next 2 weeks. Will have her reduce the salt in her diet. If blood pressure remains elevated with systolic running greater than 140 then will likely increase amlodipine dose. Will have our office nurse call her in 2 weeks. (3) Coronary artery disease: Code(s): I25.10 - Atherosclerotic heart disease of [place] coronary artery without angina pectoris Category: Medical Plan: Nuclear stress test done for shortness of breath 08/01/2022 showing possible ischemia in the mid and basal lateral wall with mild intensity. For further evaluation she underwent cardiac catheterization on 10/10/2022 showing nonobstructive coronary disease. She currently has no anginal symptoms. Continue aspirin indefinitely. She is not on statin for unclear reason. Recommend use of statin with ideal LDL goal less than 70. She is on lisinopril and amlodipine for good blood pressure control. Signs and symptoms of angina reviewed with her. (4) S/P cardiac cath: Comment: 10/10/2022, lad minimal irregularities, 1st diagonal 30% stenosis, left circumflex 1st OM 40% stenosis, RCA minimal irregularities. Code(s): Z98.890 - Other specified postprocedural states Category: Surgical Plan I discussed with the patient the importance of managing stress to reduce palpitations, as they are linked to emotional upset. We agreed to increase lisinopril to 40 mg for better blood pressure control and to reduce salt intake. I recommended an echocardiogram to assess any cardiac changes due to hypertension and scheduled non-fasting blood work to monitor kidney function and electrolytes. Orders: Orders Comprehensive Met. Panel Today I10 - Essential (primary) hypertension, I25.10 - Atherosclerotic heart disease of [place] coronary artery without angina pectoris Lipid Panel Today I10 - Essential (primary) hypertension, I25.10 - Atherosclerotic heart disease of [place] coronary artery without angina pectoris CA echo transthoracic complete Today I10 - Essential (primary) hypertension, I25.10 - Atherosclerotic heart disease of [place] coronary artery without angina pectoris Medications: New lisinopril Dose increased 40 mg PO DAILY 90 tabs 1RF Patient Instructions: - Manage stress to reduce palpitations. - Increase lisinopril to 40 mg as prescribed. - Reduce salt intake in your diet. - Monitor blood pressure at home regularly. - Complete non-fasting blood work as scheduled. - Attend echocardiogram appointment when scheduled. Patient was informed and verbally consented to the use of an ambient scribe for clinic note documentation during this visit. Visit time spent on chart review, interview, assessment, orders, documentation. Coding Level of Care Code Est Pt Level 4 (29855) Complex EM visit Add On G2211 Diagnoses Palpitations R00.2 Essential hypertension I10 Coronary artery disease I25.10 S/P cardiac cath Z98.890 CPT Codes EKG - CPT: [id number]-[id number], Complete ([id number]) Time Spent (min) 28
--- OUTSIDE RECORDS SUMMARY | 2025-06-02 15:04 | XMS_ITS | Clinical Summary ---
Author Organization [address] Address [address] [place] [phone] Phone Care Team Providers Care Oil Prospecting Observer Name Role Phone Eduardo Stauffer MD Primary Care Provider Allergies No known active allergies Medications clonazePAM (KLONOPIN) 1 mg tablet every morning. 11/02/2020 Active diazePAM (VALIUM) 5 mg tablet TAKE 1/2 TABLET BY MOUTH TWICE A DAY NEEDED 10/27/2020 Active escitalopram oxalate (LEXAPRO) 10 mg tablet every morning. 09/03/2020 Active fluticasone propionate (FLONASE) 50 mcg/actuation nasal spray USE 1 SPRAY INTO BOTH NOSTRILS TWICE A DAY 05/15/2020 Active lisinopriL (PRINIVIL,ZESTR IL) 10 mg tablet every morning. 11/09/2020 Active ASPIRIN ORAL Take by mouth. Active acetaminophen (TYLENOL ORAL) Take by mouth. Active Active Problems No known active problems Social History Tobacco Use Types Packs/Day Years Used Date Smoking Tobacco: Former Cigarettes 0.5 12 1 973 - 1985 Alcohol Use Standard Drinks/Week Comments Yes 0 (1 standard drink = 0.6 oz pur e alcohol) VODKA NIGHTLY Comments Unknown Sex and Gender Information Value Date Recorded Sex Assigned at Not on file Legal Sex Female 10:37 PM EST Gender Identity Not on file Sexual Orientation Not on file Last Filed Vital Signs Vital Sign Reading Time Taken Comments Blood Pressure 181/76 01/13/2021 3:40 PM EDT Pulse 66 01/13/2021 3:40 PM EDT Temperature 36.7 C (98 F) 01/13/2021 3:40 PM EDT Respiratory Rate 18 01/13/2021 3:40 PM EDT Oxygen Saturation 97% 01/13/2021 3:40 PM EDT Inhaled Oxygen Concentration - - Weight 62.6 kg (138 lb) 01/13/2021 10:14 AM EDT Height 161.3 cm (5' 3.5 ) 01/10/2021 10:08 AM ED T Body Mass Index 24.06 01/10/2021 10:08 AM EDT Plan of Treatment Health Maintenance Due Date Last Done Comments HIV screening 1957 Tetanus adult (Td q 10,TDAP once) 1964 Lipid disorder screening 1984 Diabetes screening 1989 Pneumococcal Vaccine (50+ ye ars) (1 of 1 - PCV) 1994 Shingles vaccine (Shingrix) (1 of 2 - Shingrix (RZV) 2 Dose Standard Series) 1994 Osteoporosis screening (bone density) 2009 RSV Immunization (1 - 1-dose 75+ series) 2019 Covid-19 vaccine series ( season) 2025 Influenza vaccine 05/25/2025 Breast cancer screening Discontinued Cervical cancer screening Discontinued Colon cancer screening, Colonoscopy Discontinued Meningococcal B Vaccine Aged Out No l onger eligible based on patient's age to complete this topic Meningococcal Vaccine Aged Out No boby ruddy eligible based on patient's age to complete this topic Insurance MEDICARE [facility] MEDICARE [facility] MEDICARE [facility] Care Teams Oil Prospecting Observer Relationship Specialty Start Date End Date Eduardo Stauffer MD [address] [place] [id number] [place] [phone] PCP - General Internal Medicine 12/29/20
--- OUTSIDE RECORDS SUMMARY | 2025-06-02 15:04 | XMS_ITS | Patient Health Record ---
Author Organization [facility] Address [address] [place] [phone] Care Team Providers Care Mica Miner Name Role Phone Eh (RETIRED) Rubio SANTILLAN Primary Care Provide r Jose Infante Unavailable [phone] Reason For Referral No Information Medications Medication SIG (Take, Route, Frequency, Duration) Notes Start Date End Date Status Lisinopril 5 MG TAKE 1 TABLET BY THOMPSON TH ONCE A DAY Oral for 30 Active Escitalopram Oxalate 10 MG TAKE 1 TABLET BY MOUTH EVERY DAY Oral for 30 Active clonazePAM 0.5 MG TAKE 2 TABLETS BY MO UTH EVERY DAY Oral for 30 Active Fluzone High-Dose FOR ADMINISTRATION B Y THE PHARMACIST Intramuscular for 1 Not-Taking Multivitamin Adult - as directed Orally once a day Active Immunizations Vaccine Route Administration Date Status Comme nts Influenza Unknown 06/24/2019 Administered Problems Problem Type SNOMED Code ICD Code Onset Dates Problem Status W/U Status Risk Notes Problem [id number] Abnormal CT scan, colon (R93.3) Active confirmed Problem 57723261 Ischemic colitis (K55.9) Active confirmed Encounters Encounter Location Date Provider Diagnosis [facility] [address] [place] [phone] 07/03/2024 Jose Abdullahi Plan Of Treatment Future Test Test Name Order Date COLONOSCOPY 07/22/2014 COLONOSCOPY 12/25/2019 Insurance Providers Payer Name Payer Address Payer Phone Subscriber Number Group Number Insured Name Patient Relationship to Insured Coverage Start Date Coverage End Date [place] [employer] [address] [place] [address] [id number] FRANCISCA GOMEZ Self - patient is the insured [employer] ATT[employer] CLAIMS [address] [place] [address] [id number] FRANCISCA GOMEZ Self - patient is the insured Medical (General) History Medical History History ICD Code COLONOSCOPY IN 08/2003-ONLY HYPERPLASTIC POLYPS, SIGMOID DIVERTICULOSIS, INTERNAL HEMORRHOIDS PANIC ATTACKS Denies OK,DM,CVA,Lung disease,renal dise ase HTN Kidney stone 11/2019 Negative colonoscopy in 2014 Ischemic colitis in September of 2019 invo lving the left colon Surgical History Surgery Date(Month/Year) 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
--- OUTSIDE RECORDS SUMMARY | 2025-06-02 15:04 | XMS_ITS | Clinical Summary ---
Author Organization [facility] Address [address] [address] Phone Care Team Providers Care Polytechnic Registrar Name Role Phone Rubio Stauffer MD Primary Care Provider Allergies No known active allergies Medications oxyCODONE 5 MG immediate release tablet Take 1 tablet (5 mg total) by mouth every 6 (six) hours as needed for moderate pain or severe pain (moderate to severe pain.). Pt. may request partial fill 12 tablet 01/05/2020 Active Social History Tobacco Use Types Packs/Day Years Used Date Smoking Tobacco: Never Smokeless Tobacco: Never Alcohol Use Standard Drinks/Week Comments Yes 3 (1 standard drink = 0.6 oz pur e alcohol) Education Answer Date Recorded Are you interested in more education? Not on sandra e 01/19/2023 Are you concerned about learning? Not on file 01/19/2023 No 01/19/2023 No 01/19/2023 Digital Access Answer Date Recorded No 02/20/2023 No 02/20/2023 Reliable internet access at home? Not on file 02/20/2023 Device with a working camera? Not on file Comments No Sex and Gender Information Value Date Recorded Sex Assigned at Female 01/05/2020 2:13 PM EDT Legal Sex Female 2:02 PM EDT Gender Identity Female 01/05/2020 2:13 PM EDT Sexual Orientation Straight 01/05/2020 2: 19 PM EDT Last Filed Vital Signs Vital Sign Reading Time Taken Comments Blood Pressure 157/93 01/05/2020 5:37 PM EDT Pulse 85 01/05/2020 2:07 PM EDT Temperature 36.9 C (98.4 F) 01/05/2020 2:07 PM EDT Respiratory Rate 22 01/05/2020 2:07 PM EDT Oxygen Saturation 99% 01/05/2020 5:37 PM EDT Inhaled Oxygen Concentration - - Weight 60.8 kg (134 lb) 01/05/2020 2:07 PM EDT Height 165.1 cm (5' 5 ) 01/05/2020 2:07 PM EDT Body Mass Index 22.3 01/05/2020 2:07 PM EDT Plan of Treatment Not on file Medical Devices Not on file Insurance MEDICARE PART A & B [facility] MEDEX SUPPLEMENT MEDICARE PART A & B [employer] MEDEX SUPPLEMENT MEDICARE PART A & B [employer] MEDEX SUPPLEMENT MEDICARE PART A & B [employer] MEDEX SUPPLEMENT MEDICARE PART A & B [employer] MEDEX SUPPLEMENT MEDICARE PART A & B [employer] MEDEX SUPPLEMENT MEDICARE PART A & B [employer] MEDEX SUPPLEMENT MEDICARE PART A & B [employer] MEDEX SUPPLEMENT MEDICARE PART A & B [employer] MEDEX SUPPLEMENT Care Teams Polytechnic Registrar Relationship Specialty Start Date End Date Rubio Stauffer MD [address] [place] [address] [place] [address] PCP - General Internal Medicine 01/05/20 Additional Source Comments The information contained in this document represents components of the legal health record. It is not the complete legal health record.[facility]
== END 2025-06-02 13:34 | disposition home or self-care (01) ==
LOC: HO.HCS 12:46
PROVIDERS: PCP Internal Medicine; Visit Provider Nurse Practitioner Family
DX: R00.2 Palpitations (principal); I10 Essential (primary) hypertension; I25.10 Atherosclerotic heart disease of native coronary artery without angina pectoris; Z98.890 Other specified postprocedural states
CPT/HCPCS: 93010; 99214; G2211

== ENCOUNTER → 2025-06-02 12:46 | Outpatient (BNVA) | payer MEDICARE, SELFPAY | PROVIDERS: PCP Internal Medicine; Visit Provider Nurse Practitioner Family | DX: R00.2 Palpitations (principal); I10 Essential (primary) hypertension; I25.10 Atherosclerotic heart disease of native coronary artery without angina pectoris; Z98.890 Other specified postprocedural states; Z87.891 Personal history of nicotine dependence; Z79.82 Long term (current) use of aspirin; F10.20 Alcohol dependence, uncomplicated | CPT/HCPCS: 93005; 99212 ==

== ENCOUNTER → 2025-07-03 13:49 | Outpatient (REF) | payer MEDICARE, SELFPAY ==
--- NOTE | 2025-07-03 13:52 | CA_ITS ---
Transthoracic Echocardiogram Patient (Last, First, Middle): Mayda Cohen J Gender: F Date of : 1945 Age: 79 Procedure Date: 07/03/2025 Procedure Type: Transthoracic Echocardiogram Location: OP Height: 162. cm Weight: 61.24 kg BSA: 1.65 m2 Heart Rate: 56 bpm BP: 180 / 90 mmHg Interventional Sale Consultant: MEE Referring MD: Maria C Zapata NP-Myrna Slip Cover Operator: Franco Burnham MD Symptoms: I25.10 - Atherosclerotic heart disease of [place] coronary artery without... Study Quality: Fair ECG Rhythm: Bradycardia Conclusions: - 1. Normal LV ejection fraction of 60 65% with impaired relaxation filling pattern 2. Moderate mitral annular calcification with normal cardiac valvular Dopplers 3. Normal RV systolic pressure 4. No gross pericardial effusion Findings Left Ventricle Normal left ventricular size, thickness, and systolic function. The visually estimated ejection fraction is between 60-65%. Spectral Doppler is indicative of an impaired relaxation filling pattern. E/E prime ratio is between 8 and 15 consistent with indeterminate filling pressures. There is mild septal asymmetric hypertrophy. Right Ventricle Normal right ventricular cavity size and systolic function. Atria The left atrium was not well visualized. Interatrial shunt cannot be excluded. The right atrium is normal in size. Aortic Valve Normal aortic valve structure and function. There is mild calcification of the aortic valve. There is no aortic valve stenosis. There is no aortic valve regurgitation. Mitral Valve There is mild anterior and moderate posterior mitral leaflet thickening. There is moderate mitral annular calcification. There is trace mitral valve regurgitation. There is no mitral valve stenosis. Pulmonic Valve The pulmonic valve was not well visualized. Tricuspid Valve Likely normal tricuspid valve structure and function. There is trace tricuspid valve regurgitation. The right ventricular systolic pressure is normal. The right ventricular systolic pressure is 12 mmHg. Normal right atrial pressure. There is no evidence of pulmonary hypertension. Great Vessels All visible segments of the aorta are normal in size. The pulmonary artery was not well visualized. There is no dilatation of the ascending aorta measuring 3.00 cm. Venous The inferior vena cava is normal in size and collapses greater than 50% with inspiration. Pericardium/Pleural There is no evidence of pericardial effusion. Prior Study Comparison No significant change compared to prior study dated: 11/09/2021. Measurements 2D Linear Measurements IVSd: 1.06 0.6-0.9/0.6-1.0 cm LVIDd: 4.32 3.9-5.3/4.2-5.9 cm LVIDd Index: 2.62 2.4-3.2/2.2-3.1 cm/m2 LVIDs: 2.07 2.0-3.6 cm LVPWd: 1.00 0.7-1.1 cm LA Diam: 3.50 2.7-3.8/3.0-4.0 cm LAIDs Index: 2.12 1.5-2.3 cm/m2 LV Mass: 186.24 67-162/88-224 g LV Mass Index: 112.87 43-95/49-115 g/m2 LVOT Diam: 1.90 3.0+(-)1.3 cm 2D Systolic Function EF 4C: 59.90 >55% EF 2C: 67.40 >55% EF BiP: 64.30 >55% Mitral Valve MV Pk E: 0.79 MV PK A: 1.04 MV Decel Time: 310.00 E/A: 0.80 E'Lateral: 3.89 E'Medial: 2.84 E/E' Med: 27.70 E/E' Lat: 20.20 PHT: 91.00 MVA PHT: 2.42 Decel [place]: 2.54 Aortic Valve AoV Pk Toro: 1.27 AoV Mn Toro: 0.94 AoV VTI: 0.31 AoV Pk Grad: 6.00 Aov Mn Grad: 4.00 ANTONIO Cont.VTI: 2.05 LVOT LVOT Pk Toro: 0.92 LVOT Mn Toro: 0.65 LVOT VTI: 0.22 LVOT Pk Grad: 3.00 LVOT Mn Grad: 2.00 LVOT Diam: 1.90 LVOT Area: 2.84 Diastolic Function MV Pk E: 0.79 MV Pk A: 1.04 E/A: 0.80 E'Medial: 2.84 E/E' Med: 27.70 E' Laterial: 3.89 E/E' Lat: 20.20 Right Ventricle TAPSE (mm): 25.70 TVS' Toro: 10.50 Tricuspid Valve TR Pk Toro: 1.49 TR Pk Grad: 9.00 RA Press: 3.00 RVSP: 12.00 Great Vessels Aorta Sinus of Valsalva: 3.20 2.0-3.5 cm Ao Asc: 3.00 2.1-3.4 cm Ao Arch: 2.20 Pulmonary Veins Pulm Vein S/D 1.50 Pulmonary Valve PV Pk Toro: 0.84 Peak PV Grad: 3.00 Updated in Other Vendor System with Status of Final Franco Burnham MD electronically signed on 07/03/2025 5:42:57 PM with status of Final
== END ==
LOC: HO.CARD 13:49
PROVIDERS: PCP Internal Medicine; Visit Provider Nurse Practitioner Family
DX: I25.10 Atherosclerotic heart disease of native coronary artery without angina pectoris (principal); I10 Essential (primary) hypertension
CPT/HCPCS: 93306

== ENCOUNTER → 2025-07-03 13:52 | Outpatient (BNV) | payer MEDICARE, SELFPAY | PROVIDERS: PCP Internal Medicine; Visit Provider Internal Medicine Cardiovascular Disease | DX: I42.2 Other hypertrophic cardiomyopathy (principal); I34.81 Nonrheumatic mitral (valve) annulus calcification | CPT/HCPCS: 93306 ==

== ENCOUNTER 2025-08-10 13:06 | Outpatient (AMB) | payer MEDICARE, SELFPAY ==
[2025-08-10 13:08] VITALS: BP 158/90; PULSE 71; BMI 22.3
--- NOTE | 2025-08-10 13:08 | A.OFFVIS_ITS ---
Vital Signs 08/10/25 13:08 Height 5 ft 3 in Weight 125 lb 10.616 oz BMI 22.3 BP 158/90 H Blood Pressure Location Lt brachial Position Sitting Pulse 71 Pulse Source Pulse Oximeter Intake Visit Reasons: 2 mth fu after echo Slide Forming Machine Operator Required: No Territory Sales Representative: Territory Sales Representative Present Allergies No Known Allergies (No Known Allergies*) Allergy (Verified 08/10/25 13:12) Medication List - Last Reconciled 08/10/25 by Maria C Zapata, STRATEGIC ALLIANCES MANAGER-C albuterol sulfate 90 mcg/actuation 2 puffs inhalation QID amlodipine 5 mg PO DAILY aspirin (Adult Low Dose Aspirin) 81 mg PO DAILY clonazepam 1 mg PO BEDTIME PRN diazepam 2.5 mg PO BID PRN escitalopram oxalate 10 mg PO DAILY lisinopril 40 mg PO DAILY multivitamin 1 tab PO DAILY HPI HPI 2 mth fu after echo: Details: Mayda is an 79-year-old female with past medical history of prior smoking, GERD, hypertension, mild nonobstructive coronary artery, heart palpitations who presents for follow up after recent echocardiogram. Today she reports that she is not feeling well. She has been under stress and has been having depression. Her blood pressure is not controlled with readings as high as 200 systolic at home. She feels her heart pounding when her blood pressure is high and when she is upset. She has no chest discomfort at rest or with activity. She has no shortness of breath, PND, orthopnea or edema. No dizziness, presyncope, syncope, falls. Taking meds as directed. She is trying to cut down salt. is present. [facility] Surgical History Hx of tonsillectomy Family History Mother S/P triple vessel bypass Father Myocardial infarction Sister Heart disease Son HTN (hypertension) Social History Housing: House Alcohol intake: current Alcohol intake frequency: a few times a week Alcohol type: hard liquor Patient Tobacco Use Status: Former Tobacco user Years Smoked: 10 +/- e-Cigarette/Vaping Use: Former Use Substance Use Type: Marijuana service: No Current occupational status: retired Cognitive needs: No Hearing needs: No Vision needs: Yes (Rx glasses) Review of Systems Const Details: high stress levels. BP not controlled All systems reviewed & are unremarkable except as noted in HPI and below ENT Denies dizziness Card Details: Pounding heart Denies chest pain, Denies chest pain at rest, Denies chest pain with activity, Denies rapid heart rate, Denies pedal edema, Denies edema, Denies leg edema, Denies lightheadedness, Denies palpitations, Denies dyspnea, Denies dyspnea on exertion and Denies orthopnea Resp Denies cough, Denies dyspnea and Denies dyspnea on exertion GI Denies hematochezia and Denies change in stool character Musc Denies abnormal gait, Reports limited range of motion, Denies muscle cramps, Denies muscle weakness, Denies numbness, Denies radiating pain into limb, Denies stiffness and Denies tingling Neuro Denies abnormal gait, Denies dizziness, Denies numbness and Denies tingling Endo Denies palpitations Physical Exam Vital Signs: BMI result Body Mass Index 22.3 Const General: cooperative, healthy appearing and no acute distress Orientation/consciousness: patient oriented x3 Neck Neck: Yes normal visual inspection and Yes no JVD Resp Effort & Inspection: normal respiratory effort Auscultation: clear to auscultation bilaterally, no crackles, no rales, no rhonchi and no wheezes Cardio Rate: regular rate Rhythm: regular rhythm Heart sounds: S1 normal heart sound present, S2 normal heart sound present, no gallops, no murmurs and no rubs Neuro General: patient oriented x3 Extrem General: Yes normal to inspection, No no pedal edema and No calf tenderness Psych Appearance: grossly normal Mental Status: mental status grossly normal Speech and movement: Normal speech and movement present Assessment & Plan Assessment & Plan (1) Essential hypertension: Code(s): I10 - Essential (primary) hypertension Category: Medical Plan: Blood pressure goal less than 130/80. Uncontrolled. Blood pressure today 158/90. Home blood pressure systolic is highest 200. Also symptom of pounding heart. Will add carvedilol 3.125 mg b.i.d.. Continue amlodipine 5 mg daily and lisinopril 40 mg daily. Office blood pressure in 2 weeks. Plan to increase amlodipine if blood pressure remains elevated. Reviewed low-salt diet. Office visit 1 month, sooner if needed. (2) Palpitations: Code(s): R00.2 - Palpitations Category: Medical Plan: Report of heart pounding when BP is elevated. Pulse regular, 82 apically when checked by me. Echocardiogram 07/03/2025 showed EF 60-65%, impaired relaxation, moderate mitral annular calcification, normal valve Dopplers. Will be starting carvedilol to help with blood pressure control. Will check Holter monitor to assess rates, rhythm. (3) Coronary artery disease: Code(s): I25.10 - Atherosclerotic heart disease of [place] coronary artery without angina pectoris Category: Medical Plan: Nuclear stress test done for shortness of breath 08/01/2022 showing possible ischemia in the mid and basal lateral wall with mild intensity. For further evaluation she underwent cardiac catheterization on 10/10/2022 showing nonobstructive coronary disease. She currently has no anginal symptoms. Continue aspirin indefinitely. She is not on statin for unclear reason. Recommend use of statin with ideal LDL goal less than 70. She is on lisinopril and amlodipine for blood pressure control. Adding carvedilol. Signs and symptoms of angina reviewed with her. (4) S/P cardiac cath: Comment: 10/10/2022, lad minimal irregularities, 1st diagonal 30% stenosis, left circumflex 1st OM 40% stenosis, RCA minimal irregularities. Code(s): Z98.890 - Other specified postprocedural states Category: Surgical Plan I discussed with the patient the plan to introduce carvedilol to manage her blood pressure and heart rate. We will re-evaluate her blood pressure in two to three weeks to assess the effectiveness of the treatment. Amlodipine to be increased if BP not controlled at that time. I advised her to continue therapy for stress management and depression. Reviewed low salt diet. Orders: Orders ECG 3 day holter monitor Today R00.2 - Palpitations Medications: New carvedilol must administer with a meal/food 3.125 mg PO BID 60 tabs 3RF Patient Instructions: - Take amlodipine and Lisinopril as prescribed - Take carvedilol twice daily as prescribed. - Monitor blood pressure at home and report any significant changes. - Continue attending therapy sessions for stress and depression management. Patient was informed and verbally consented to the use of an ambient scribe for clinic note documentation during this visit. Visit time spent on chart review, interview, assessment, orders, documentation. Coding Level of Care Code Est Pt Level 3 (00327) Complex EM visit Add On G2211 Diagnoses Essential hypertension I10 Palpitations R00.2 Coronary artery disease I25.10 S/P cardiac cath Z98.890 Time Spent (min) 24
== END 2025-08-10 13:34 | disposition home or self-care (01) ==
LOC: HO.HCS 13:07
PROVIDERS: PCP Internal Medicine; Visit Provider Nurse Practitioner Family
DX: I10 Essential (primary) hypertension (principal); R00.2 Palpitations; I25.10 Atherosclerotic heart disease of native coronary artery without angina pectoris; Z98.890 Other specified postprocedural states
CPT/HCPCS: 99213; G2211

== ENCOUNTER → 2025-08-10 13:06 | Outpatient (BNVA) | payer MEDICARE, SELFPAY | PROVIDERS: PCP Internal Medicine; Visit Provider Nurse Practitioner Family | DX: R00.2 Palpitations (principal); I25.10 Atherosclerotic heart disease of native coronary artery without angina pectoris; I10 Essential (primary) hypertension; Z98.890 Other specified postprocedural states | CPT/HCPCS: 99212 ==

== ENCOUNTER → 2025-09-11 13:23 | Outpatient (REF) | payer MEDICARE, SELFPAY ==
--- OUTSIDE RECORDS SUMMARY | 2025-09-11 15:09 | XMS_ITS | Clinical Summary ---
Author Organization [facility] Address [address] [address] Phone Care Team Providers Care Web Project Manager Name Role Phone Rubio Stauffer MD Primary [...] file Insurance MEDICARE PART A & B [facility] MEDEX SUPPLEMENT MEDICARE PART A & B [employer] MEDEX SUPPLEMENT MEDICARE PART A & B [employer] MEDEX SUPPLEMENT MEDICARE PART A & B [employer] MEDEX SUPPLEMENT MEDICARE PART A & B [employer] MEDEX SUPPLEMENT MEDICARE PART A & B [employer] MEDEX SUPPLEMENT MEDICARE PART A & B [employer] MEDEX SUPPLEMENT MEDICARE PART A & B [employer] MEDEX SUPPLEMENT MEDICARE PART A & B [employer] MEDEX SUPPLEMENT Care Teams Web Project Manager Relationship Specialty Start Date End Date Rubio Stauffer MD [address] [place] [address] [place] [address] PCP - General Internal Medicine 01/05/20 Additional Source Comments The information contained in this document represents components of the legal health record. It is not the complete legal health record.[facility]
--- OUTSIDE RECORDS SUMMARY | 2025-09-11 15:09 | XMS_ITS | Patient Health Record ---
Author Organization [facility] Address [address] [place] [address] Care Team Providers Care Deputy Jailer Name Role Phone Eh (RETIRED) Rubio SANTILLAN Primary Care Provide r Jose Infante Unavailable [phone] Reason For Referral No Information Medications Medication SIG (Take, Route, Frequency, Duration) Notes Start Date End Date Status Lisinopril 5 MG Tablet TAKE 1 TABLET BY MOUTH ONCE A DAY Oral; Duration: 30 Active Escitalopram Oxalate 10 MG Tablet TAKE 1 TABLET BY MOUTH EVERY DAY Oral; Duration: 30 Active clonazePAM 0.5 MG Tablet TAKE 2 TABLETS BY MOUTH EVERY DAY Oral; Duration: 30 Active Fluzone High-Dose Suspension FOR ADMINISTRATION BY THE PHARMACIST Intramuscular; Duration: 1 Not-Taking/PRN Multivitamin Adult - Tablet as directed Orally once a day Active Immunizations Vaccine Route Administration Date Status Comme nts Influenza Unknown 06/24/2019 Administered Social History Social History Additional Details Category Social Info Options Details Miscellaneous: Marital status: Occupation: stylist/larios Section Notes: Nonsmoker; no sig alcohol Nonsmoker; no sig alcohol Problems Problem Type SNOMED Code ICD Code Onset Dates Problem Status W/U Status Risk Notes Problem Computed tomography result abnormal (384211509) Abnormal CT scan, colon (R93.3) Active confirmed Problem Ischemic colitis (02030375) Ischemic colitis (K55.9) Active confirmed Plan Of Treatment Future Test Test Name Order Date COLONOSCOPY 07/22/2014 COLONOSCOPY 12/25/2019 Insurance Providers Payer Name Payer Address Payer Phone Subscriber Number Group Number Insured Name Patient Relationship to Insured Coverage Start Date Coverage End Date MEDICARE OF [employer] [address] [place] [address] [phone] [id number] FRANCISCA GOMEZ Self - patient is the insured MEDEX ATTN CLAIMS [address] [phone] [id number] FRANCISCA GOMEZ Self - patient is the insured Medical (General) History Medical History History ICD Code COLONOSCOPY IN 08/2003-ONLY HYPERPLASTIC POLYPS, SIGMOID DIVERTICULOSIS, INTERNAL HEMORRHOIDS PANIC ATTACKS Denies VT,DM,CVA,Lung disease,renal dise ase HTN Kidney stone 11/2019 Negative colonoscopy in 2014 Ischemic colitis in September of 2019 invo lving the left colon Surgical History Surgery Date(Month/Year) 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
--- OUTSIDE RECORDS SUMMARY | 2025-09-11 15:09 | XMS_ITS | Clinical Summary ---
Author Organization [address] Address [address] [place] [phone] Phone Care Team Providers Care Gas Engine Operator Compressors Name Role Phone Eduardo Stauffer MD Primary Care Provider [phone] Allergies No known active allergies Medications clonazePAM [...] Immunization (1 - 1-dose 75+ series) 2019 Influenza vaccine 04/24/2025 Covid-19 vaccine series (2024- season) 2025 Breast cancer screening Discontinued Cervical cancer screening Discontinued Colon cancer screening, Colonoscopy Discontinued Meningococcal B Vaccine Aged Out No l onger eligible based on patient's age to complete this topic Meningococcal Vaccine Aged Out No boby ruddy eligible based on patient's age to complete this topic Insurance MEDICARE [facility] MEDICARE [facility] MEDICARE [facility] Care Teams Gas Engine Operator Compressors Relationship Specialty Start Date End Date Eduardo Stauffer MD [address] [place] [address] [place] [address] PCP - General Internal Medicine 12/29/20
--- OUTSIDE RECORDS SUMMARY | 2025-09-11 15:09 | XMS_ITS ---
Author Organization [facility] Care Team Providers Care Director Of Veterans Affairs Name Role Phone Erma Lan Unavailable Unavailable Rubio Stauffer Unavailable Unavailable Cally Pappas Unavailable Allergies and adverse reactions No Known Allergies Care Team Name Role Address Phone Organization Dates Rubio Stauffer [address], [address], [place], [address], [facility] (Office): [phone] (Fax): [phone] [facility] 07/08/2024 - 07/16/2024 Erma Lan [address] [place] [address], [facility] (Office): : [facility] 07/08/2024 - 07/16/2024 Cally Pappas [address] [place] [address] [address], [place], [address], [facility] (Office): : [facility] 07/08/2024 - 07/16/2024 Immunizations Immunization Status Vaccine Details Vaccine Code CodeSystem Fabrizio e Notes (Influenza) FLUAD - Adjuvanted - High Dose - 65+ completed Influenza, adjuvanted, inactivated, trivalent, injectable, preservative free 168 CVX created date: 07/15/2024 administered date: 06/21/2024 Mental Status Section Date Assessment Total Score Description 07/16/2024 BIMS 15 cognitively int act CAM 0 No delirium ind icated PHQ-9 00 07/14/2024 BIMS 15 cognitively int act CAM 0 No delirium ind icated PHQ-9 00 Insurance Providers Coverage Status Coverage Type Relationship to Subscriber Member Identifier Subscriber Identifier Group Identifier Payer Identifier and Other information 2024 Code: 1 Code System OID:2.16.84 [id number]. 3.221.5 Code System Name: Source of Payment Typology (PHDSC) Display: Medicare Translation : Code: [place] Code System: OID:2.16.84 [id number]. 6.255.1336 Code System Name: Insurance Type Code ([id number]) Display Name: Medicare Part A Code: SELF Code System Name: HL7 RoleCode Code System OID:2.16.840.1 .887874.5.111 Display Name: Self [id number] Root: [id number] Address: Problems Problem # Description Date of onset Resolved Date Code CodeSystem Concern Status 1 CHRONIC OBSTRUCTIVE PULMONARY DISEASE, UNSPECIFIED 07/10/[address] active 2 AGE-RELATED OSTEOPOROSIS WITHOUT CURRENT PATHOLOGICAL FRACTURE 07/08/[address] active 3 ANXIETY DISORDER, UNSPECIFIED 07/08/[address] active 4 ESSENTIAL (PRIMARY) HYPERTENSION 07/08/[address] active 5 GASTRO-ESOPHAGEAL REFLUX DISEASE WITHOUT ESOPHAGITIS 07/08/[address] active 6 HISTORY OF FALLING 07/08/[address] active 7 MAJOR DEPRESSIVE DISORDER, SINGLE EPISODE, UNSPECIFIED 07/08/[address] active 8 MULTIPLE FRACTURES OF RIBS, UNSPECIFIED SIDE, SUBSEQUENT ENCOUNTER FOR FRACTURE WITH ROUTINE HEALING 07/08/[address] active 9 OTHER FRACTURE OF UPPER END OF RIGHT RADIUS, SUBSEQUENT ENCOUNTER FOR CLOSED FRACTURE WITH ROUTINE HEALING 07/08/[address] active 10 UNSPECIFIED PROTEIN-CALORIE MALNUTRITION 07/08/[address] active Reason for Referral No Reasons for Referral Entered Social History Social History Observation Description Start Date End Date Code Code System Current Smoking Status Tobacco smoking consumption unknown 849737476 SNOMED CT Sex Assigned At Female 1945 [address]-5 [facility] Gender Identity Sexual Orientation Vital Signs Code Code System Vitals Name Values and Units Timing Information 9279-1 [facility] Respiratory Rate Value=18.0 Units=/m in 07/16/2024 8462-4 [facility] Blood Pressure-Diastolic Value=66 Un its=mmHg 07/16/2024 8480-6 [facility] Blood Pressure-Systolic Mjvjq=371 Un its=mmHg 07/16/2024 8310-5 [facility] Body Temperature Value=98.3 Units= F 07/16/2024 8867-4 [facility] Heart rate Value=58.0 Units=/min 11362-7 [facility] O2 % BldC Oximetry Value=98.0 Units= % 07/16/2024 41733-5 [facility] Pain Level Value=0.0 07/16/2024 50398-8 [facility] Weight Qpfjt=343.0 Units=Lbs 8302-2 [facility] Height Value=64.0 Units=Inches 07/09/2024
== END ==
LOC: HO.CARD 13:23
PROVIDERS: PCP Physician Assistant Medical; Visit Provider Nurse Practitioner Family
DX: R00.2 Palpitations (principal)
CPT/HCPCS: 93242

== ENCOUNTER → 2025-09-11 14:19 | Outpatient (BNV) | payer MEDICARE, SELFPAY | PROVIDERS: PCP Physician Assistant Medical; Visit Provider Internal Medicine Cardiovascular Disease | DX: R00.1 Bradycardia, unspecified (principal) | CPT/HCPCS: 93244 ==